=== PATIENT | male | born 1955 | race Caucasian/White ===

== ENCOUNTER 2020-03-27 08:02 | Day surgery (SDC) | payer BC ==
[2020-03-26 16:28] VITALS: BMI 23.5
[2020-03-27] MEDS ORDERED: PROPOFOL 20 ML ONE ×2 (08:44)
[2020-03-27 09:19] VITALS: TEMP 98.2
[2020-03-27 09:58] VITALS: BP 106/68; PULSE 62
== END 2020-03-27 09:59 | disposition home or self-care (01) ==
LOC: FASU-ENDO 08:02
PROVIDERS: ATTEND Internal Medicine Gastroenterology
PROC: 0DBN8ZX Excision of Sigmoid Colon, Via Natural or Artificial Opening Endoscopic, Diagnostic (ICD-10-PCS; 2020-03-27)
PROC: 0DBH8ZX Excision of Cecum, Via Natural or Artificial Opening Endoscopic, Diagnostic (ICD-10-PCS; principal; 2020-03-27 08:47)
DX: Z12.11 Encounter for screening for malignant neoplasm of colon (principal); D12.0 Benign neoplasm of cecum; D12.5 Benign neoplasm of sigmoid colon
CPT/HCPCS: 88305-TC